=== PATIENT | female | born 1970 | race Caucasian/White ===

== ENCOUNTER → 2018-01-05 15:43 | Outpatient (CLI) | payer BC, SELFPAY ==
[2018-01-05 17:04] LABS: Hematocrit 43.1 % (37-47); Hemoglobin 14.7 g/dl (12.0-15.0); Mean Corp Hgb Conc 34.1 g/gl (32-36); Mean Corpuscular Hgb 28.3 pg (27.0-32.0); Mean Corpuscular Volume 82.9 fL (81-99); Mean Platelet Vol. 10.4 fl (6.2-12.0); Platelet Count 376 K/mm3 (150-450); RBC Distribution Width CV 13.2 % (11.6-14.6); White Blood Count 8.8 K/mm3 (4.4-11.0)
[2018-01-05 17:06] LABS: Scan Indicated on CBC? Y/N NO
[2018-01-05 17:42] LABS: Vitamin B12 741 pg/mL (211-911)
[2018-01-05 17:52] LABS: AST(SGOT) 24 U/L (15-37); Alanine Aminotransfer ALT/SGPT 45 U/L (13-56); Albumin, Serum 3.8 g/dL (3.2-5.0); Alkaline Phosphatase 79 U/L (45-117); Anion Gap 7 (5-15); BUN 14 mg/dL (7-18); Calcium,Total 9.7 mg/dL (8.5-10.1); Chloride 105 mmol/L (98-107); Creatinine, Serum 0.87 mg/dL (0.55-1.02); EST Glomerular Filtration Rate 73 mL/min (>60); Est Glom Filt Rate - Afr Amer 89 mL/min (>60); Glucose 100 mg/dL (74-106); Magnesium 2.2 mg/dL (1.6-2.6); Phosphorus 3.5 mg/dL (2.5-4.9); Potassium 3.8 mmol/L (3.5-5.1); Protein, Total 7.8 g/dL (6.4-8.2); Sodium Level 140 mmol/L (136-145)
[2018-01-09 11:36] LABS: Estrogen, Total, Serum 38 pg/mL (.)
== END ==
PROVIDERS: Family Provider Family Medicine; PCP Family Medicine; Visit Provider Nurse Practitioner Acute Care
DX: R20.0 Anesthesia of skin (principal); R20.2 Paresthesia of skin
CPT/HCPCS: 36415; 80053; 82607; 82672; 82746; 83735; 84100; 84403; 85027

== ENCOUNTER → 2018-04-01 07:41 | Outpatient (CLI) | payer BC, SELFPAY ==
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
== END ==
PROVIDERS: Family Provider Family Medicine; PCP Family Medicine; Visit Provider Nurse Practitioner Acute Care
DX: R20.0 Anesthesia of skin (principal)
CPT/HCPCS: 95886; 95910

== ENCOUNTER → 2018-04-10 21:04 | Outpatient (CLI) | payer BC, SELFPAY | PROVIDERS: Family Provider Family Medicine; PCP Family Medicine; Visit Provider Nurse Practitioner Acute Care | DX: G47.33 Obstructive sleep apnea (adult) (pediatric) (principal); R06.83 Snoring | CPT/HCPCS: 95810 ==

== ENCOUNTER → 2018-04-28 07:29 | Outpatient (CLI) | payer BC, SELFPAY ==
--- NOTE | 2018-04-28 10:44 | NEURO_ITS ---
NCS and/or EMG Patient Report Ordering Doctor: Tonya Gentile DATE OF SERVICE: 04/28/18 This is a bilateral upper extremity nerve conduction study performed on this 47- year-old female with a history of 3 years of left body numbness beginning in her left face and arm. It is now progressed to involve the right side. There is no neck pain, other studies have been normal including recent bilateral lower extremity elective his like studies including left lower extremity EMG testing. Bilateral upper extremity sensory and motor nerve conduction studies performed. Mild prolongation of the median motor and sensory distal latencies with mild reduction of amplitudes bilaterally. The ulnar motor and sensory and radial sensory responses are normal. There is mild prolongation of the left median F wave. EMG testing was not performed due to recent EMG testing. 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
== END ==
PROVIDERS: Family Provider Family Medicine; PCP Family Medicine; Visit Provider Nurse Practitioner Acute Care
DX: R20.0 Anesthesia of skin (principal)
CPT/HCPCS: 95913

== ENCOUNTER → 2018-08-24 17:02 | Outpatient (CLI) | payer BC, SELFPAY ==
[2018-08-24 17:37] LABS: Hematocrit 42.2 % (37-47); Hemoglobin 14.7 g/dl (12.0-15.0); Mean Corp Hgb Conc 34.8 g/gl (32-36); Mean Corpuscular Hgb 29.2 pg (27.0-32.0); Mean Corpuscular Volume 83.9 fL (81-99); Mean Platelet Vol. 10.2 fl (6.2-12.0); Platelet Count 374 K/mm3 (150-450); RBC Distribution Width CV 13.3 % (11.6-14.6); RBC Distribution Width SD 40.3 fl (35.1-43.9); Red Blood Count 5.03 M/mm3 (4.2-5.4); Scan Indicated on CBC? Y/N NO; White Blood Count 13.7 K/mm3 (4.4-11.0)
[2018-08-24 18:04] LABS: Vitamin B12 711 pg/mL (211-911); Vitamin D,25 Hydroxy 30.8 ng/mL (29.95-100.01)
[2018-08-24 18:41] LABS: ALB/GLOB Ratio 0.9 RATIO (0.9-2.4); AST(SGOT) 13 U/L (15-37); Alanine Aminotransfer ALT/SGPT 21 U/L (13-56); Albumin, Serum 3.7 g/dL (3.2-5.0); Alkaline Phosphatase 62 U/L (45-117); Anion Gap 10 (5-15); BUN 11 mg/dL (7-18); BUN/Creat Ratio 12.5 RATIO (10-20); Calcium,Total 8.8 mg/dL (8.5-10.1); Chloride 106 mmol/L (98-107); Creatinine, Serum 0.88 mg/dL (0.55-1.02); EST Glomerular Filtration Rate 73 mL/min (>60); Est Glom Filt Rate - Afr Amer 88 mL/min (>60); Globulin 3.9 g/dL (2.2-4.2); Glucose 89 mg/dL (74-106); Magnesium 2.1 mg/dL (1.6-2.6); Phosphorus 3.4 mg/dL (2.5-4.9); Potassium 3.7 mmol/L (3.5-5.1); Protein, Total 7.6 g/dL (6.4-8.2); Sodium Level 141 mmol/L (136-145)
--- OUTSIDE RECORDS SUMMARY | 2018-11-26 09:39 | XMS RPT_ITS ---
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 palpable abnormality. Ultrasound: Multiple grayscale ultrasonographic images were obtained through the right breast in the region of palpable and mammographic abnormality. FINDINGS: Mammography: There are areas of scattered fibroglandular tissue. No discrete mass or focal asymmetry is identified. No suspicious microcalcifications or foci of architectural distortion are seen. However, as there is a focal palpable abnormality, further evaluation with ultrasound was obtained. This study was interpreted with CAD. Ultrasound: No discrete mass or ultrasonographic abnormality is seen in the region of palpable abnormality. IMPRESSION: No mammographic evidence of malignancy. BI-RADS CATEGORY: Category: 1 - Negative. Recommendation: Normal Interval Follow-up, Over Age 40. Recall Interval: 12 Months. Exam Date/Time: 02/16/2018 09:01 EDT Report Breast Density: Scattered Fibroglandular Density. FINAL REPORT Dictated: 02/16/2018 9:32 am Jose L Bellamy MD Signed (Electronic Signature): 02/16/2018 9:32 am Signed by: Jose L Bellamy MD Technologist: CEC Assessment: BI-RADS Category 1-Negative Recommendation: Normal interval follow-up CBC W/ AUTO DIFF Collected: 02/06/2018 Status: F Source: [facility] 12:03 PM [facility] REPOSITORY TYPE CODE TESTS RESULT OUT OF RANGE REFERENCE UNITS LAB [id number](L 3.6-11.0 E3/mcL OINC) Normal WBC 10.0 LAB 78116350(L 3.90-5.40 E6/mcL OINC) Normal RBC 5.40 LAB 14921950(L 12.0-16.0 G/DL OINC) Normal Hgb 15.3 LAB 10780875(L 36.0-48.0 % OINC) Normal Hct 45.0 LAB 96860308(L 11.5-14.5 % OINC) Normal RDW 13.8 LAB 05341361(L 27.0-31.0 pg OINC) Normal MCH 28.4 LAB 69376216(L 33.0-37.0 G/DL OINC) Normal MCHC 34.0 LAB 44470448(L 78.0-100.0 fL OINC) Normal MCV 83.4 LAB 37933702(L 7.4-11.0 fL OINC) Normal MPV 8.3 LAB 23775158(L 130-400 E3/mcL OINC) Normal Platelet 367 Performed By: #### [id number] #### [facility] [address] [id number] AUTO DIFF Collected: 02/06/2018 Status: F Source: [facility] 12:03 [facility] REPOSITORY Order Comment: Order Added by Discern Expert. TYPE CODE TESTS RESULT OUT OF RANGE REFERENCE UNITS LAB [id number](L 37.0-75.0 % OINC) Normal Neutro Auto 59.5 LAB 52469741(L 20.0-55.0 % OINC) Normal Lymph Auto 32.1 LAB 47548134(L 0.0-10.0 % OINC) Normal [place] Auto 5.5 LAB 19871706(L 0.0-11.0 % OINC) Normal Eos Auto 2.1 LAB 77230379(L 0.0-2.0 % OINC) Normal Basophil Auto 0.8 LAB 36031809(L 1.4-6.5 E3/mcL OINC) Normal Neutro 5.9 Absolute LAB 29042689(L 1.2-3.4 E3/mcL OINC) Normal Lymph Absolute 3.2 LAB 22357598(L 0.0-0.7 E3/mcL OINC) Normal [place] Absolute 0.5 LAB 46606677(L 0.0-0.7 E3/mcL OINC) Normal Eos Absolute 0.2 LAB 03897565(L 0.0-0.2 E3/mcL OINC) Normal Basophil 0.1 Absolute Performed By: #### [id number] #### [facility] [address] [place] [address] TROPONIN-I Collected: 02/06/2018 Status: F Source: [facility] 12:03 [facility] REPOSITORY TYPE CODE TESTS RESULT OUT OF RANGE REFERENCE UNITS LAB 44091501(LO .00-.03 ng/mL INC) Normal <.01 Troponin-I Performed By: #### [id number] #### [facility] [employer] [address] [id number] BMP Collected: 02/06/2018 Status: F Source: [facility] 12:03 PM [facility] REPOSITORY TYPE CODE TESTS RESULT OUT OF RANGE REFERENCE UNITS LAB 59151744(L 70-99 mg/dL OINC) High Glucose Lvl 105 LAB 54637453(L 8.4-10.2 mg/dL OINC) Calcium Normal Lvl 9.4 LAB 12624504(L 136-145 mEq/L OINC) Low Sodium Lvl 135 LAB 22279837(L 3.5-5.1 mEq/L OINC) Normal Potassium Lvl 3.6 LAB 52185647(L 98-107 mEq/L OINC) Chloride Normal 100 LAB 87791338(L 24.0-30.0 mEq/L OINC) CO2 Normal 25.6 LAB 55341927(L 7-18 mg/dL OINC) BUN Normal 16 LAB 5356463(LO 0.6-1.3 mg/dL INC) Normal Creatinine 0.8 LAB 68629277(L 5.4-30.0 ratio OINC) Normal BUN/Creat Ratio 20.0 Performed By: #### [id number] #### [facility] [facility] [place] [address] PT Collected: 02/06/2018 Status: F Source: [facility] 12:03 [facility] REPOSITORY TYPE CODE TESTS RESULT OUT OF RANGE REFERENCE UNITS LAB 32627422(LO 1.0-1.2 INC) Normal INR 1.0 Result Comment: INR Recommended Therapeuptic Ranges: Prophylaxis/treatment of DVT and PE?2.0-3.0 Prevention of systemic embolism?.2.0-3.0 Mechanical prosthetic values?2.5-3.5 CRITICAL VALUES?.>4.0 LAB 37355967(LOINC) 11.6-14.6 second(s) Normal 12.3 PT Performed By: #### [id number] #### [facility] [address] [place] [address] PTT Collected: 02/06/2018 Status: F Source: [facility] 12:[address] [place] [address] REPOSITORY TYPE CODE TESTS RESULT OUT OF RANGE REFERENCE UNITS LAB 51928627(LO 23.2-36.4 second(s) INC) Normal PTT 25.2 Performed By: #### [id number] #### [facility] [address] [place] [address] PTT CONTROL RATIO Collected: 02/06/2018 Status: F Source: [facility] 12:[address] [place] [address] REPOSITORY Order Comment: Order added by Discern Expert. TYPE CODE TESTS RESULT OUT OF RANGE REFERENCE UNITS LAB 76862167(LO 0.8-1.2 ratio INC) Normal PTT Ratio 0.8 Performed By: #### [id number] #### [facility] [employer] [address] [place] [address] CK Collected: 02/06/2018 Status: F Source: [facility] 12:[address] [place] [address] REPOSITORY TYPE CODE TESTS RESULT OUT OF RANGE REFERENCE UNITS LAB 06218447(LO 26-140 Int._Unit/L INC) Normal Total CK 41 Performed By: #### [id number] #### [facility] [employer] [address] [place] [address] EGFR Collected: 02/06/2018 Status: F Source: [facility] 12:[address] [place] [address] REPOSITORY Order Comment: Order added by Discern Expert. TYPE CODE TESTS RESULT OUT OF RANGE REFERENCE UNITS LAB 12416241(LO mL/min/1.73 INC) m2 Normal eGFR >60 LAB 34992334(LO mL/min/1.73 INC) m2 Normal eGFR AA >60 Performed By: #### [id number] #### [facility] [employer] [address] [place] [address] HEP FUNC PANEL Collected: 02/06/2018 Status: F Source: [facility] 12:03 [facility] REPOSITORY TYPE CODE TESTS RESULT OUT OF RANGE REFERENCE UNITS LAB 44831587(L 10-40 Int._Unit/L OINC) Normal ALT 40 LAB 80368437(L 10-42 Int._Unit/L OINC) Normal AST 30 LAB 81139232(L 3.2-5.0 G/DL OINC) Normal Albumin Lvl 4.4 LAB 88542380(L 2.0-4.0 G/DL OINC) Normal Globulin 3.2 LAB 06497415(L 1.1-1.9 ratio OINC) Normal A/G Ratio 1.4 LAB 48193698(L 42-121 Int._Unit/L OINC) Normal Alk Phos 67 LAB 44133592(L .00-.20 mg/dL OINC) Normal Bili Direct <.10 LAB 95297762(L OINC) Normal Bili Indirect >0.5 Result Comment: No established ranges available for the Indirect Biliruben. LAB 64430710(LOINC) 0.2-1.0 mg/dL Normal Bili Total 0.6 LAB 17591084(LOINC) 6.4-8.3 G/DL Normal Total Protein 7.6 Performed By: #### [id number] #### [facility] [place] [address] CKMB Collected: 02/06/2018 Status: F Source: [facility] 12:03 PM [facility] REPOSITORY TYPE CODE TESTS RESULT OUT OF RANGE REFERENCE UNITS LAB 72232635(LO 0.0-5.0 ng/mL INC) Normal CK MB 1.1 Performed By: #### [id number] #### [facility] [employer] [facility] [place] [address] CT HEAD OR BRAIN W/O Observed: 02/06/2018 Status: F Source: [facility] CONTRAST 11:32 AM [facility] REPOSITORY Exam Date/Time: 02/06/2018 11:46 EDT Reason for Exam: Other (please specify) Report STUDY: CT Head or Brain w/o Contrast; 02/06/2018 11:46 am INDICATION: Other (please specify). Right facial numbness which radiates down right-sided body for 6 hr. Right arm and face tingling. Right eye blurred vision. Dizziness. COMPARISON: 07/02/2016. ACCESSION NUMBER(S): [id number] ORDERING CLINICIAN: Catarina Farooq TECHNIQUE: Contiguous unenhanced axial images were obtained through the brain. FINDINGS: INTRACRANIAL: No acute intracranial bleed, midline shift, or mass effect is seen. Gardner-white differentiation is maintained. No extra-axial fluid collection or hydrocephalus. Bones are intact. EXTRACRANIAL: Visualized paranasal sinuses and mastoids are clear. IMPRESSION: No acute intracranial process. FINAL REPORT Dictated: 02/06/2018 11:54 am Tigre Grover MD Signed (Electronic Signature): 02/06/2018 11:54 am Signed by: Tigre Grover MD Technologist: DIEGO FLOYD W/HPV RFX Collected: 02/04/2018 Status: F Source: [facility] [id number] 4:31 PM [facility] REPOSITORY Order Comment: Thin Prep. Menopause TYPE CODE TESTS RESULT OUT OF RANGE REFERENCE UNITS LAB 22705723(LO INC) Normal See Ref Lab Diagnosis: Report Performed By: #### [id number] #### [facility] [employer] [address] MAMM SCREEN W/CAD Observed: 02/04/2018 Status: F Source: [facility] IF PERFORMED BILAT 3:12 PM [facility] REPOSITORY Exam Date/Time: 02/04/2018 15:31 EDT Reason for Exam: SCREENING;Screening Report BILATERAL DIGITAL SCREENING MAMMOGRAMS WITH CAD COMPARISON: 07/01/2016, 2015, and 04/04/2014. FINDINGS: Moderately dense parenchyma is seen in the retroareolar areas bilaterally. There is an area of increased density, in the right breast on the MLO projection. This may be uncompressed parenchyma. A 90 degree lateral view and spot compression views are recommended. This is not confirmed on the CC projection. There are no clustered microcalcifications present. A scar marker is present on the left side. IMPRESSION: Asymmetric area right breast MLO projection. 90 degree lateral view and a spot magnification view recommended. BI-RADS 0 - Need additional imaging evaluation at this time. OVERALL ASSESSMENT- NEED ADDITIONAL IMAGING EVALUATION. A letter of notification will be sent to the patient regarding the results. Assessment / Recommendation: 0-1 Additional projections Breast density: Scattered Fibroglandular Density Recall interval: Now FINAL REPORT Dictated: 02/05/2018 8:28 am Ramiro Love MD Signed (Electronic Signature): 02/05/2018 8:28 am Signed by: Ivan SMITH, Ramiro Lynne Technologist: YORDAN Assessment: BI-RADS Category 0-Incomplete: Need additional imaging evaluation Recommendation: Additional projections PATHOLOGY ([facility]) Observed: 02/04/2018 Status: F Source: [facility] 12:00 AM REPOSITORY FINAL GYNECOLOGIC CYTOLOGY REPORT [id number] SPECIMEN ADEQUACY Satisfactory for Evaluation Endocervical component absent but acceptable due to patient age/history GENERAL CATEGORIZATION Negative for Intraepithelial Lesion or Malignancy CLINICAL HISTORY Menopause SPECIMEN (A) SCREENING CERVICAL/ENDOCERVICAL THIN PREP VIAL Performed at [facility], [address] [place] [address] Screened by: Signed Out by: NAOMY MCDANIEL Master Technician Reported: 02/06/2018 Performed By: #### PRINT PRODUCER #### [facility] [address] [place] [address] CBC-COMPLETE BLOOD CNT Collected: 01/05/2018 Status: F Source: [place] NO DIFF 3:50 PM [facility] REPOSITORY TYPE CODE TESTS RESULT OUT OF RANGE REFERENCE UNITS LAB L100.1000 4.4-11.0 K/mm3 Normal WBC 8.8 LAB L100.1200 4.2-5.4 M/mm3 Normal RBC 5.20 LAB L100.1300 12.0-15.0 g/dl Normal HGB 14.7 LAB L100.1400 37-47 % Normal HCT 43.1 LAB L100.1500 81-99 fL Normal MCV 82.9 LAB L100.1600 27.0-32.0 pg Normal MCH 28.3 LAB L100.1700 32-36 g/gl Normal MCHC 34.1 LAB L100.1810 11.6-14.6 % Normal RDW CV 13.2 LAB L100.1820 35.1-43.9 fl Normal RDW SD 40.0 LAB L100.1900 150-450 K/mm3 Normal PLT 376 LAB L100.2000 6.2-12.0 fl Normal MPV 10.4 Performed By: #### L100.0500 #### [facility] [address] [place], [place], [address] VITAMIN B12 Collected: 01/05/2018 Status: F Source: [place] 3:50 PM [facility] REPOSITORY TYPE CODE TESTS RESULT OUT OF RANGE REFERENCE UNITS LAB L503.0105 211-911 pg/mL Normal Vitamin B12 741 Performed By: #### L503.0105, L509.3000 #### [facility] [address] [place], [place], [address] TESTOSTERONE, SERUM TOTAL Collected: 01/05/2018 Status: F Source: [place] 3:50 PM [facility] REPOSITORY TYPE CODE TESTS RESULT OUT OF REFERENCE UNITS RANGE LAB L509.3000 ng/dL Testosterone Normal 14.34 Result Comment: NORMAL REFERENCE RANGES MALE AGE <50 123.06 - 813.86 ng/dL MALE AGE >50 89.98 - 780.10 ng/dL FEMALE PREMENOPAUSE AGE 21 - 60 9.01 - 47.94 ng/dL FEMALE POSTMENOPAUSE AGE 45 - 89 <7.00 - 45.62 ng/dL REFERENCE RANGE AND METHODOLOGY CHANGED 08/27/2017 Performed By: #### L503.0105, L509.3000 #### [facility] [address] [place], [place], [address] COMPREHENSIVE METABOLIC Collected: 01/05/2018 Status: F Source: [facility] 3:50 PM [facility] REPOSITORY Order Comment: Is Patient Taking Vitamins or Folic Acid Supplements? N TYPE CODE TESTS RESULT OUT OF RANGE REFERENCE UNITS LAB L501.0100 74-106 mg/dL Normal GLU 100 Result Comment: Fasting Glucose result from 100 to 125 mg/dL suggests IMPAIRED HOMEOSTASIS per A.D.A. criteria. Please note revised GLUCOSE reference range effective 2017. LAB L501.1000 7-18 mg/dL Normal BUN 14 LAB L501.1100 0.55-1.02 mg/dL Normal CREAT,SERUM 0.87 Result Comment: The validity of the calculated GFR AND GFRAA in patients over 70 years has not been determined. Clinical correlation is essential. LAB L501.1110 >60 mL/min Normal EST GFR 73 Result Comment: Non- GFR Calc LAB L501.1115 >60 mL/min Normal EST GFR - AA 89 Result Comment: GFR Calc LAB L501.1300 10-20 RATIO Normal BUN/CRE 16.0 LAB L501.1500 6.4-8.2 g/dL T Normal PROT 7.8 LAB L501.1800 3.2-5.0 g/dL Normal ALB 3.8 LAB L501.1950 2.2-4.2 g/dL Normal GLOB 4.0 LAB L501.2000 0.9-2.4 RATIO Normal A/G 1.0 LAB L501.2200 8.5-10.1 mg/dL CA Normal 9.7 LAB L501.4100 15-37 U/L Normal AST 24 LAB L501.4305 45-117 U/L Normal ALK P 79 LAB L501.4405 13-56 U/L Normal ALT 45 LAB L501.4600 0.20-1.00 mg/dL T Normal BILI 0.30 LAB L501.5300 136-145 mmol/L NA Normal 140 LAB L501.5600 3.5-5.1 mmol/L K Normal 3.8 LAB L501.5900 98-107 mmol/L CL Normal 105 LAB L501.6100 21.0-32.0 mmol/L Normal CO2 28.0 LAB L501.6200 5-15 Normal GAP 7 Performed By: #### L500.4050, L501.2300, L501.5200, L506.0250 #### [facility] [address] [place], [place], [id number] PHOSPHORUS Collected: 01/05/2018 Status: F Source: [place] 3:50 PM [facility] REPOSITORY Order Comment: Is Patient Taking Vitamins or Folic Acid Supplements? N TYPE CODE TESTS RESULT OUT OF RANGE REFERENCE UNITS LAB L501.2300 2.5-4.9 mg/dL Normal PHOS 3.5 Performed By: #### L500.4050, L501.2300, L501.5200, L506.0250 #### [facility] [address] [place], [place], [address] MAGNESIUM Collected: 01/05/2018 Status: F Source: [place] 3:50 PM [facility] REPOSITORY Order Comment: Is Patient Taking Vitamins or Folic Acid Supplements? N TYPE CODE TESTS RESULT OUT OF RANGE REFERENCE UNITS LAB L501.5200 1.6-2.6 mg/dL Normal MG 2.2 Performed By: #### L500.4050, L501.2300, L501.5200, L506.0250 #### [facility] [address] [facility] [place], [address] FOLATES, (FOLIC ACID) Collected: 01/05/2018 Status: F Source: [facility] 3:50 PM [facility] REPOSITORY Order Comment: Is Patient Taking Vitamins or Folic Acid Supplements? N TYPE CODE TESTS RESULT OUT OF RANGE REFERENCE UNITS LAB L506.0250 3.1-55.4 ng/mL Normal FOLATES 37.90 Performed By: #### L500.4050, L501.2300, L501.5200, L506.0250 #### [facility] [address] [place], [address] ESTROGEN, TOTAL, SERUM Collected: 01/05/2018 Status: F Source: [place] 3:50 PM [facility] REPOSITORY Order Comment: Has Patient had Radioactive Injection for X-ray?: N TYPE CODE TESTS RESULT OUT OF RANGE REFERENCE UNITS LAB L3400.0200 . pg/mL Normal ESTROGEN 4549 38 Result Comment: Prepubertal <40 Female Cycle: 1-10 Days 61 - 394 11-20 Days 122 - 437 21-30 Days 156 - 350 Post-Menopausal <40 HMG Treatment for Ovulation Induction: 400 - 800 Performed at: [facility] [id number] [employer] Project Manager: Nilay Blackmon MD, Phone: [phone] Performed By: #### L3400.0200 #### [facility] (refer to report for specific site) refer to report for address and phone number MRI BRAIN W/ + W/O Observed: 11/25/2017 Status: F Source: [facility] 8:20 AM [facility] REPOSITORY Exam Date/Time: 11/25/2017 09:22 EDT Reason for Exam: BILAT LEG NUMBNESS;Other (please specify) Report MRI BRAIN WITH AND WITHOUT CONTRAST, 11/25/2017. HISTORY: Numbness in legs. COMPARISON: None. TECHNIQUE: Sagittal and axial T1, axial T2, FLAIR, diffusion, T2 gradient, coronal T2, postcontrast axial and coronal T1 images were obtained. 16 mL MultiHance. FINDINGS: Paranasal sinuses are clear. Mastoid air cells are clear. Nasopharynx is normal. Skin Installer spaces are normal. Orbital contents are normal. Ventricles are normal in size. No hydrocephalus. No mass effect. No shift of midline. No significant signal abnormalities in the brain. Diffusion images are normal. No acute infarction. Gradient echo images show no hemorrhagic lesions. The coronal T2 images show a normal symmetric appearance of the mesiotemporal lobes. No pathologic enhancement in the brain. No brain masses. IMPRESSION: Normal MRI of the brain. FINAL REPORT Dictated: 11/25/2017 12:06 pm Shahbaz Diallo MD Signed (Electronic Signature): 11/25/2017 12:06 pm Signed by: Shahbaz Diallo MD Technologist: BELA XR SPINE LUMBAR W/ Observed: 10/28/2017 Status: F Source: [facility] 5:23 PM [facility] REPOSITORY Exam Date/Time: 10/28/2017 17:37 EST Reason for Exam: Back pain Report XR SPINE LUMBAR W/ OBLIQUES CLINICAL STATEMENT: Bilateral leg numbness. TECHNIQUE: AP, both oblique, lateral, and lateral lumbosacral views. COMPARISON: 03/31/2017. FINDINGS: There are 5 lumbar segments. Pedicles are preserved. The alignment is normal. I see no evidence of compression fracture or pars defects. There is still fairly good preservation of the disc spaces. There is mild endplate degenerative change. I do not see any acute finding or significant interval change from 03/31/2017. There are again noted to be degenerative disc disease findings at T10-T11. IMPRESSION: 1. Stable appearance of the lumbar spine with relatively good preservation of the disc spaces and only minimal endplate degenerative changes. No compression deformity or pars defects are seen. 2. Incidental demonstration again of degenerative disc disease changes at T10-T11. FINAL REPORT Dictated: 10/29/2017 11:22 am Dominique Espinal DO Signed (Electronic Signature): 10/29/2017 11:22 am Signed by: Dominique Espinal DO Technologist: KYLE CBC W/ AUTO DIFF Collected: 10/28/2017 Status: F Source: [facility] 9:32 AM [facility] REPOSITORY TYPE CODE TESTS RESULT OUT OF RANGE REFERENCE UNITS LAB 83651129(L 3.6-11.0 E3/mcL OINC) Normal WBC 9.4 LAB 69497805(L 3.90-5.40 E6/mcL OINC) Normal RBC 5.39 LAB 48859859(L 12.0-16.0 G/DL OINC) Normal Hgb 15.5 LAB 63023061(L 36.0-48.0 % OINC) Normal Hct 45.5 LAB 67898817(L 11.5-14.5 % OINC) Normal RDW 13.4 LAB 73159191(L 27.0-31.0 pg OINC) Normal MCH 28.7 LAB 70734342(L 33.0-37.0 G/DL OINC) Normal MCHC 34.0 LAB 35658852(L 78.0-100.0 fL OINC) Normal MCV 84.4 LAB 55886974(L 7.4-11.0 fL OINC) Normal MPV 8.9 LAB 53775154(L 130-400 E3/mcL OINC) Normal Platelet 360 Performed By: #### [id number] #### [place] [address] AUTO DIFF Collected: 10/28/2017 Status: F Source: [facility] 9:32 AM [facility] REPOSITORY Order Comment: Order Added by Discern Expert. TYPE CODE TESTS RESULT OUT OF RANGE REFERENCE UNITS LAB 70972195(L 37.0-75.0 % OINC) Normal Neutro Auto 63.3 LAB 18123818(L 20.0-55.0 % OINC) Normal Lymph Auto 27.4 LAB 05833103(L 0.0-10.0 % OINC) Normal [place]oc[place] Auto 5.3 LAB 03228833(L 0.0-11.0 % OINC) Normal Eos Auto 3.4 LAB 39740644(L 0.0-2.0 % OINC) Normal Basophil Auto 0.6 LAB 87105929(L 1.4-6.5 E3/mcL OINC) Normal Neutro 5.9 Absolute LAB 26597147(L 1.2-3.4 E3/mcL OINC) Normal Lymph Absolute 2.6 LAB 71381750(L 0.0-0.7 E3/mcL OINC) Normal [place] Absolute 0.5 LAB 69929690(L 0.0-0.7 E3/mcL OINC) Normal Eos Absolute 0.3 LAB 15122102(L 0.0-0.2 E3/mcL OINC) Normal Basophil 0.1 Absolute Performed By: #### [id number] #### [facility] [id number] [facility] Collected: 10/28/2017 Status: F Source: [facility] 9:32 AM [facility] REPOSITORY TYPE CODE TESTS RESULT OUT OF RANGE REFERENCE UNITS LAB 58769413(L 70-99 mg/dL OINC) High Glucose Lvl 105 LAB 36000424(L 8.4-10.2 mg/dL OINC) Calcium Normal Lvl 9.6 LAB 42052005(L 136-145 mEq/L OINC) Sodium Normal Lvl 138 LAB 60088851(L 3.5-5.1 mEq/L OINC) Normal Potassium Lvl 4.2 LAB 30664095(L 98-107 mEq/L OINC) Chloride Normal 105 LAB 03668518(L 24.0-30.0 mEq/L OINC) CO2 Normal 25.1 LAB 19708642(L 7-18 mg/dL OINC) BUN Normal 18 LAB 2944373(LO 0.6-1.3 mg/dL INC) Normal Creatinine 0.9 LAB 10388126(L 42-121 Int._Unit/ OINC) L Alk Phos Normal 60 LAB 46746918(L 0.2-1.0 mg/dL OINC) Bili Normal Total 0.4 LAB 77437027(L 3.2-5.0 G/DL OINC) Albumin Normal Lvl 4.3 LAB 75318269(L 6.4-8.3 G/DL OINC) Total Normal Protein 7.3 LAB 08561976(L 10-40 Int._Unit/ OINC) High L ALT 48 LAB 67613714(L 10-42 Int._Unit/ OINC) L AST Normal 32 LAB 14612102(L 5.4-30.0 ratio OINC) Normal BUN/Creat Ratio 20.0 LAB 40883396(L 2.0-4.0 G/DL OINC) Globulin Normal 3.0 LAB 09094851(L 1.1-1.9 ratio OINC) A/G Normal Ratio 1.4 Performed By: #### [id number] #### [facility] [address] [place] [address] MAGNESIUM Collected: 10/28/2017 Status: F Source: [facility] 9:32 AM [facility] REPOSITORY TYPE CODE TESTS RESULT OUT OF RANGE REFERENCE UNITS LAB 61708017(L 1.7-2.8 mg/dL OINC) Normal Magnesium 2.2 Performed By: #### [id number] #### [facility] [place] [id number] TSH Collected: 10/28/2017 Status: F Source: [facility] 9:32 AM [facility] TYPE CODE TESTS RESULT OUT OF RANGE REFERENCE UNITS LAB 30268629(LO 0.30-5.60 mIU/m INC) Normal TSH 3.28 Performed By: #### [id number] #### [facility] [address] [place] [address] FREE T4 Collected: 10/28/2017 Status: F Source: [facility] 9:32 AM [facility] TYPE CODE TESTS RESULT OUT OF RANGE REFERENCE UNITS LAB 74801029(LO 0.58-1.64 ng/dL INC) Normal T4 Free 0.80 Result Comment: Patients receiving more than 5mg/day of biotin may have interference in test results. A sample should be taken no sooner than eight hours after previous dose. Performed By: #### [id number] #### [facility] [address] [place] [address] EGFR Collected: 10/28/2017 Status: F Source: [facility] 9:32 AM [facility] REPOSITORY Order Comment: Order added by Discern Expert. TYPE CODE TESTS RESULT OUT OF RANGE REFERENCE UNITS LAB [id number](LO mL/min/1.73 INC) m2 Normal eGFR >60 LAB [id number](LO mL/min/1.73 INC) m2 Normal eGFR AA >60 Performed By: #### [id number] #### CHRIS [place] [id number] LIPID PROFILE Collected: 10/28/2017 Status: F Source: FAITH 9:32 AM [facility] REPOSITORY TYPE CODE TESTS RESULT OUT OF RANGE REFERENCE UNITS LAB [id number](LO 50-200 mg/dL INC) High Chol 205 Result Comment: TOTAL CHOLEESTEROL: <200 NORMAL 200 - 239 BORDERLINE HIGH >240 HIGH LAB [id number](LOINC) >=41 mg/dL Normal HDL 41 LAB [id number](LOINC) 0-130 mg/dL High LDL 144 Result Comment: <100 OPTIMAL 100-129 NEAR / ABOVE OPTIMAL 130-159 BORDERLINE HIGH 160-189 HIGH >190 VERY HIGH CALC LDL NOT VALID WHEN TRIGLYCERIDE IS >400 MG/DL LAB [id number](LOINC) 35-150 mg/dL Normal Trig 99 Result Comment: <150 NORMAL 150-199 BORDERLINE HIGH 200-499 HIGH >500 VERY HIGH LAB [id number](LOINC) Normal VLDL 20 Performed By: #### [id number] #### CHRIS [facility] [address] [place] [address] VITAMIN D 25 HYDROXY Collected: 10/28/2017 Status: F Source: FAITH 9:32 [facility] REPOSITORY TYPE CODE TESTS RESULT OUT OF REFERENCE UNITS RANGE LAB [id number](L 30.0-100.0 ng/mL OINC) Low Vitamin D 25 23.6 Hydroxy Performed By: #### [id number] #### CHRIS [facility] [address] [place] [address] VIT B12 Collected: 10/28/2017 Status: F Source: FAITH 9:32 AM [facility] REPOSITORY TYPE CODE TESTS RESULT OUT OF RANGE REFERENCE UNITS LAB [id number](LO 180-914 pg/mL INC) Normal Vitamin B12 745 Lvl Performed By: #### [id number] #### CHRIS [facility] [address] [place] [address] ALLERGIES ALLERGIES DATE TYPE / CODE NAME / CODE REACTION SEVERITY SOURCE 07/03/2016 Drug morphine/[id number] Other Unknown [place] Allergy/416 45(RXNORM) [facility] 045645([facility] ED CT) Repository 07/03/2016 Drug codeine/N03250059 Other Unknown [place] Allergy/416 0(RXNORM) [facility] 590369([facility] ED CT) Repository 07/03/2016 Drug azithromycin/F006 Nausea/Vom/Diar Unknown [place] Allergy/416 108362(RXNORM) [facility] 237000([facility] ED CT) Repository Drug/279573 codeine MAKE HER Muslim 003(SNOMED [facility]) System Repository Drug/745295 morphine MAKES ME LOOPY Muslim 003(SNOMED [facility]) System Repository Drug/677680 Zithromax VOMITING, Muslim 003(SNOMED DIARRHEA [facility] CT) System Repository Drug/979016 No Known Muslim 003(SNOMED Medication [facility] CT) Allergies System Repository ENCOUNTERS ENCOUNTERS ADMIT/DISCHARGE ACCOUNT NUMBER ADMITTING ENCOUNTER LOCATION SOURCE CLASS 08/24/2018 [id number] [facility] ding:LAB Repository 07/21/2018/07/21/[id number] ding:[place] Repository nt MedicRoom: Room 1 06/23/2018/06/23/[id number] ding:[place] Repository nt MedicRoom: Room 2 06/22/2018/06/22/[id number] ding:[place] Repository nt Medic 06/22/[id number] Repository 06/01/2018/06/01/[id number] [facility] om: Room 6 05/27/2018/05/27/[id number] ding:[facility] System Repository 05/27/2018 [id number] Ambulatory [address] [place] [address] Repository 05/20/2018/05/20/[id number] [facility] om: Room 5 05/08/2018/05/08/[id number] ding:[place] Repository nt Medic 04/28/2018 [id number] [facility] ding:PSN Repository 04/10/2018 [id number] [facility] ding:SL Repository 04/01/2018 [id number] Ambulatory [facility] ding:PSN Repository 03/18/2018/03/18/20 [id number] Alexia Gambino Ambulatory [facility] [address] [facility] ding:[place] Repository nt MedicRoom: Room 1 02/16/2018/02/17/20 [id number] [facility] Mai A [facility] ding:.[facility] Repository 02/16/2018 [id number] Ambulatory [address] [place] [address] Repository 02/13/2018 [id number] Ambulatory Building:[facility] Repository 02/06/2018/02/07/20 [id number] Farooq, [facility] 18 Catarina E [facility] ding:[facility] System EDRoom: WR Repository 02/06/2018 [id number] Ambulatory [address] [place] [address] Repository 02/04/2018/02/05/20 [id number] [facility] 18 [facility] ding:.[facility] System Repository 02/04/2018/02/05/20 [id number] [facility] 18 Mai A [facility] ding:[facility] Repository 02/04/2018/02/05/20 [id number] [facility] 18 [facility] Health System :[facility] Repository om: Room 5 02/04/2018 [id number] Ambulatory [address] [place] [address] Repository 02/04/2018 [id number] Ambulatory 9509 [facility] Repository 01/27/2018/01/28/20 [id number] [facility] [address] [facility] ding:[place] Repository nt MedicRoom: Room 3 01/05/2018 [id number] Ambulatory [facility] ding:LAB Repository 11/28/2017/11/29/19 [id number] [facility] [address] [facility] ding:[place] Repository nt MedicRoom: Room 2 11/25/2017/11/26/[id number] [facility] Ambulatory [address] A [facility] ding:[facility] Health System Repository 10/28/2017/10/28/[id number] [facility] DEP Repository 10/28/2017/10/28/[id number] [facility] ding:[place] Repository nt MedicRoom: Room 2 PAYERS PAYERS ENCOUNTER GUARANTOR PAYER SUBSCRIBER SOURCE 08/24/2018 DOMINGA L Primary [facility] FLEERDOB: [address] y Number: [id number] Hospital [address]Hsn: (151) [id number] Repository [phone] () Date:6242-99-72HL[address] [address]XE: 08/24/2018 Secondary [facility] [place] Insurance:ANTHEM [id number] [facility] Number: Repository [id number] Date:2001-51-92ED[address] [address]SH: 08/24/2018 Tertiary NOT GIVENUNK [place] Insurance:SELF PAY [facility] Number: Effective Repository Date:2018-08-24 06/22/2018 DOMINGA L Primary DOMINGA L [place] FLENNERDOB: Insurance:AnthemPolic FLENNERDOB: Hospitals y Number: [id number] Repository [facility] [id number] [facility] [address] [place] [address] Date:Plan Name:[address] [id number]: [id number]: () () 06/22/2018 Secondary REX FLENNERDOB: University Insurance:AnthemPolic [id number] Hospitals y Number: [facility] Repository [id number] [address] [place] [address], [place] Date:Plan Name:Health [id number] 05/27/2018 DOM[facility]A [facility]: [facility] y Number: [id number] Repository [facility] [id number] [address], [place] Date:Plan Name:[address] [id number]: [phone]: () () 05/27/2018 Secondary [facility] [place] Insurance:[facility] [id number] [facility] y Number: [facility] Repository [id number] [address] Date:Plan Name:[facility] [id number] 05/08/2018 DOMINGA L Primary DOMINGA L [facility] CenterB: Insurance:[address] [place] [address]B: [facility] ANTHEMPolicy Number: [id number] System [facility] Effective [facility] Repository [address] [place] [address], [place] Date:2017-11-[address] [place] [address] [id number]: [id number] [id number]: Name:CD:[id number] O () [address] ()Tel: [address]HV: [phone]) [phone] (wp) [phone] 04/28/2018 DOMINGA L Primary DOM[place]A L [place] [address] [address] Insurance:[facility] HospitalB: [address] y Number: [id number] [facility] [address]Pcv: (138) [id number] Repository [phone] () Date:0026-50-75NQ [address]IM[address] [place] [address]GP: 04/28/2018 Secondary REX FLENNERDOB: Rubin Insurance:[facility] [id number] Number: Repository [id number] Date:8065-52-28TR [address] [place] [address]DV: 04/28/2018 Tertiary NOT GIVENUNK [place] Insurance:SELF PAY [facility] Number: Effective Repository Date:2018-01-07 04/10/2018 DOMINGA L Primary DOMINGA L [place] [id number] [address] Insurance:ANTHEMPolic FLENNERDOB: [address] y Number: [id number] Hospital [address]Sqj: (924) [id number] Repository [phone] () Date:7756-73-71YI [address] [place] [address] 18490JS: 04/10/2018 Secondary REX FLENNERDOB: Rubin Insurance:[facility] [id number] County Medical Center [facility] Number: Repository [id number] Date:3895-57-56UT [address] [place] [address] 41489HC: 04/10/2018 Tertiary NOT GIVENUNK [place] Insurance:SELF PAY [facility] Number: Effective Repository Date:2018-02-12 04/01/2018 DOMINGA L Primary DOMINGA L Rubin [id number] [address] Insurance:ANTHEMPolic FLENNERDOB: [address] y Number: [id number] Hospital [address]Ggp: (167) [id number] Repository [phone] (HP) Date:8824-84-89SW [address] [place] [address] 32565PP: 04/01/2018 Secondary REX FLENNERDOB: [place] Insurance:[facility] [id number] County Medical Center Hospital Number: Repository [id number] Date:1776-71-24LS [address]JQ[address] [place] [address]EP: 04/01/2018 Tertiary NOT GIVENUNK Rubin Insurance:SELF PAY [facility] Number: Effective Repository Date:2018-01-07 02/16/2018 DOMINGA L Primary [facility]A [facility]: Insurance:ANTHEMPHCA [facility] HospitalB: [facility] y Number: Effective [id number] System [facility] [address] Date:2018-02-09 - [facility] Repository [address] [place] [address] [id number] [address] [place] [address] [id number]: Name:Barrington CARRION [id number]: [id number], [place] (HP) [address]LV: ([phone]) (HP)Tel: [phone] (WP) 02/16/2018 Secondary REX Griffin Muslim Insurance:[facility]THHCA Florida [facility] Park HospitalB: [facility] y Number: Effective [id number] System Date:2018-02-09 - [facility] Repository [id number] [address] [place] [address] Name:Barrington Loredo SHEYLA [address]Rob: [id number], [place] [address]WP: [phone]) (HP) [phone] (WP) 02/16/[address] [facility]B: Insurance:AnthLee Health Coconut PointB: [facility] y Number: [id number] Repository [facility] [address] [id number] [address], [place] Date:Plan Name:[address] [id number]: [id number]: (FZ) (HP) 02/16/2018 Secondary [facility]: [place] Insurance:AnthemPolic [id number] Hospitals y Number: [facility] Repository [id number] [address] Date:Plan Name:[facility] [id number] 02/13/2018 DOMINGA Primary [facility]NN[facility]: Insurance:MMOPolicy FLENNERDOB: Three Repository Number: [id number] [facility] [address] [id number] [facility] [address] [place] [address] Date:2015-09-08 - [address] [place] [address] 50047Qmy: (568) [id number] [address] [address]Ycr: (hp) [address], [place] [phone] (HP) [address]SD: 02/13/2018 Secondary [facility] Insurance:ANTHEMPolic FLENNERDOB: Three Repository y Number: [id number] [facility] [address] Date:8522-43-87ZT[address] 126438BPWFKTO[address] [place] [address] [id number] [address]WP: 02/06/2018 [facility] FLENNERDOB: Insurance:ANTHEMPolic [facility]ITAL[facility]: [facility] y Number: Effective [id number] System [facility] Date:2018-02-06 - [facility] Repository [address] [place] [address] [id number] [address] [place] [address] [id number]: Name:Barrington LoredoCHILDREN'S MER[facility] [id number]: [address] [place] [address] (HP) [phone]: [phone]) ()Tel: [phone] (WP) 02/06/2018 Secondary REX S Muslim Insurance:ANTHEMPolic FLENNERDOB: [facility] y Number: Effective [id number] System Date:2018-02-06 - [facility] Repository [id number] [address] [place] [address] Name:Barrington Loredo [place] [address]Oud: 268[address]THAMEPQGTH, [place] [address]WP: [phone]) (HP) [phone] (WP) 02/06/2018 DOMINGA Primary DOMINGA [place] FLENNERDOB: Insurance:AnthemPolic FLENNERDOB: Hospitals y Number: [id number] Repository [facility] [address] [id number] [facility] [address] [place] [address] Date:Plan Name:[address] [id number]: [id number]: () (HP) 02/06/2018 Secondary NORMANDY FLEERDOB: [place] Insurance:AnthemPolic [id number] Hospitals y Number: [facility] Repository [id number] [address] [place] [address] Date:Plan Name:[facility] [id number] 02/04/2018 [facility] Primary DOMINGA [facility] FLENNERDOB: Insurance:ANTHEMPolic FLEERDOB: [facility] y Number: Effective [id number] System [facility] Date:2018-02-04 - [facility] Repository [address] [place] [address] [id number] [address] [place] [address] [id number]: Name:Barrington ZooskPO [id number]: [address] [place] [address] (HP) 510[address]UI: ([phone]) (HP)Tel: [phone] (WP) 02/04/2018 Secondary [facility] Insurance:ANTHEMPolic FLEERDOB: [facility] y Number: Effective [id number] System Date:2018-02-04 - [facility] Repository [id number] [address] [place] [address] Name:Barrington CrossPO [address] [address]Qlo: [address]14ZUNQHHTTUC, [place] [address]WP: [phone]) (HP) [phone] (WP) 02/04/2018 DOMINGA L Primary DOMINGA [facility] FLENNERDOB: Insurance:ANTHEMPolic FLEERDOB: [facility] y Number: Effective [id number] Date:2018-02-04 - [address] Repository [address] [place] [address] [id number] [address] [place] [address] [id number]: Name:Barrington CARRION [id number]: [place] (HP) [address]IY: (322) (HP)Tel: [phone] (WP) 02/04/2018 Secondary REX S Muslim Insurance:ANTHEMPolic FLEERDOB: [facility] y Number: Effective [id number] System Date:2018-02-04 - [address] Repository [id number] [address] [place] [address] Name:Barrington CARRION [address]Usg: [place] [address]WP: [phone]) (HP) [phone] (WP) 02/04/2018 DOMINGA L Primary DOMINGA L Muslim FLENNERDOB: Insurance:[address] [facility]AMP[facility]: [facility] ANTHEMPolicy Number: [id number] System [facility] Effective [facility] Repository [address] [place] [address] Date:2017-12-[address] [place] [address] [id number]: [id number] [id number]: Name:CD:[id number] O (HP) [address] ()Tel: [address]WM: [phone] (WP) [phone] 02/04/2018 Secondary DOMINGA L Muslim Insurance:[address] [facility] CAMPUSB: [facility] ANTHEMPolicy Number: [id number] System Effective [address] Repository Date:2018-02-04 - [address] [place] [address] 2931-40-59Wiaq [id number]: Name:CD:[id number] O [address] [place] ()Tel: [address]EU: [phone] (CO) [phone] 02/04/2018 [facility]: Hospitals y Number: [id number] Repository [facility] [id number] [facility] [address] [place] [address], [place] Date:Plan Name:[address] [id number]: [phone]: (HP) (HP) 02/04/2018 Secondary [facility] University Insurance:[employer]Redwood LLC [id number] Hospitals y Number: [facility] Repository [id number] [address], [place] Date:Plan Name:Health [id number] 02/04/2018 [facility]: Insurance:[facility] HospitalB: [facility] y Number: [id number] Repository [facility] [address] [id number] [facility] [address] [place] [address], [place] Date:Plan Name:[address] [id number]: [phone]: (HP) (HP) 02/04/2018 Secondary [facility] University Insurance:[employer] [id number] [facility] y Number: [facility] Repository [id number] [address], [place] Date:Plan Name:Health [id number] 01/27/2018 [facility]: Insurance:[address] [place], [place] [address]ERB: [facility] ANTHEMPolicy Number: [id number] [address] Effective [facility] Repository [address] [place] [address], [place] Date:2018-01-[address] [place] [address] [id number]: [id number] [id number]: Name:CD:[id number] O () [address] [place] [address] ()Tel: [address]RI: [phone] WP) [phone] 01/05/2018 Dominga Primary Dominga Rubin [id number] [address] Insurance:ANTHEMPolic FlennerDOB: [address] y Number: [id number] Hospital [address]Uwo: (939) [id number] Repository [phone] () Date:4861-01-50BY [address] [place] [address] 29783HF: 01/05/2018 Secondary REX FLENNERDOB: [place] Insurance:ANTHEM [id number] [facility] Number: Repository [id number] Date:9475-58-97TB [address] [place] [address] 657[address]MX: 01/05/2018 Tertiary NOT GIVENUNK Rubin Insurance:SELF PAY [facility] Number: Effective Repository Date:2018-01-05 11/28/2017 DOMINGA L Primary DOMINGA L Muslim FLENNERDOB: Insurance:1500 FLENNERDOB: [facility] ANTHEMPolicy Number: [id number] System [facility] Effective [facility] Repository [address] [place] [address] Date:2017-07-[address] [place] [address] [id number]: 1858-45-73Hfuh [id number]: Name:CD:[id number] O () [address] [place] [address] ()Tel: [address]UJ: [phone] WP) [phone] 11/25/2017 DOMINGA L Primary DOMINGA L Muslim FLENNERDOB: Insurance:ANTHEMPolic FLEERDOB: [facility] y Number: Effective [id number] Date:2017-11-19 - [address] Repository [address] [place] [address] [id number] [address] [place] [address] [id number]: Name:Barrington CARRION [id number]: [id number], [place] (HP) [address]CN: (604) (HP)Tel: [phone] (WP) 11/25/2017 Secondary REX S Muslim Insurance:ANTHEMPolic FLENNERDOB: [facility] y Number: Effective [id number] System Date:2017-11-19 - [facility] Repository [id number] [place] [address] Name:Barrington CARRION [address]Rle: 90105TZKJGVIPBR, [place] [address]WP: [phone]) (HP) [phone] (WP) 10/28/2017 DOMINGA L Primary DOMINGA L Muslim FLENNERDOB: Insurance:ANTHEMPolic FLEERDOB: [facility] y Number: Effective [id number] System [facility] Date:2017-10-28 - [facility] Repository [address] [place] [address] [id number] [place] [address] [id number]: Name:Barrington CARRION [id number]: [id number], [place] (HP) [address]DC: (307) (HP)Tel: [phone] (WP) 10/28/2017 Secondary REX S Muslim Insurance:ANTHEMPolic FLENNERDOB: [facility] y Number: Effective [id number] System Date:2017-10-28 - [facility] Repository [id number] [address] [place] [address] Name:Barrington CARRION [address]Tjo: 793001WBWPYJX, [place] [address]WP: (508) (HP) [phone] (WP) 10/28/2017 DOMINGA L Primary DOMINGA L Muslim FLENNERDOB: Insurance:[address] [facility]: [facility] [id number] ANTHEMPolicy Number: [id number] System [facility] Effective [facility] Repository [address] [place] [address] Date:2017-10-[address] [place] [address] [id number]: 7810-91-95Fvcf [id number]: Name:CD:[id number] O () [address] ()Tel: [address]IR: [phone]) [phone] (WP) [phone] 10/28/2017 [facility] REX Harding Insurance:[address] [facility]: [facility] ANTHEMPolicy Number: [id number] System Effective [facility] Repository Date:2017-10-28 - [address] [place] [address] 2560-72-72Ekln [address]Tir: Name:CD:[id number] O [address] [place] [address] ()Tel: [phone]) [address]WP: (WP) [phone]
== END ==
PROVIDERS: Family Provider Family Medicine; PCP Family Medicine; Referring Provider Nurse Practitioner Acute Care; Visit Provider Nurse Practitioner Acute Care
DX: G62.9 Polyneuropathy, unspecified (principal)
CPT/HCPCS: 36415; 80053; 82306; 82607; 82746; 83735; 84100; 85027